=== PATIENT | female | born 1965 | race Caucasian/White ===

== ENCOUNTER 2019-10-29 16:24 | Inpatient (IN) | payer MEDICARE, OTHER ==
[~2019-10-29] VITALS: Ht 157.5 cm; Wt 72.6 kg
[2019-10-29] MEDS ORDERED: PRED1TAB PO (16:27)
[2019-10-29] MEDS ORDERED: METH2.5T PO (16:27)
--- NOTE | 2019-10-29 16:34 | NUR ---
PT BIBRA TO ER BED 01. PRESENTS W/ RLE PAIN AND DEFORMITY S/P GLF IN THE PARK. DENIES HEAD TRAUMA. ABRASION NOTED TO AFFECTED EXTREMITY. AWAITNG MD MYRICK.
--- NOTE | 2019-10-29 16:40 | NUR ---
FLACA DIAZ AT BEDSIDE FOR EVAL.
--- NOTE | 2019-10-29 16:42 | NUR ---
RADIOLOGY AT BEDSIDE FOR R TIB/FIB XRAY.
--- NOTE | 2019-10-29 17:29 | NUR ---
[facility] FOR CONSULT.
--- NOTE | 2019-10-29 17:33 | NUR ---
RADIOLOGY AT BEDSIDE FOR R ANKLE XRAY.
[2019-10-29 17:53] LABS: BASOPHILS # (AUTO) 0.1 /CMM (0.0-0.2); BASOPHILS % (AUTO) 0.6 % (0.0-2.0); EOSINOPHILS % (AUTO) 1.1 % (0.0-6.0); HEMATOCRIT 39 % (33-45); HEMOGLOBIN 12.7 g/dL (11.5-14.8); LYMPHOCYTES # (AUTO) 1.7 /CMM (0.8-4.8); LYMPHOCYTES % (AUTO) 16.9 % (20.0-44.0); MEAN CORPUSCULAR HGB CONC 32 g/dl (31.0-36.0); MEAN CORPUSCULAR VOLUME 88 fL (82-100); MONOCYTES # (AUTO) 0.6 /CMM (0.1-1.30); NEUTROPHILS # (AUTO) 7.4 /CMM (1.8-8.9); NEUTROPHILS % (AUTO) 75.4 % (43.0-81.0); PLATELET COUNT (AUTO) 223 /CMM (150-450); RED BLOOD CELL COUNT(AUTO) 4.46 MIL/uL (4.0-5.2); WHITE BLOOD COUNT (AUTO) 9.8 K/uL (4.3-11.0)
[2019-10-29 18:03] LABS: CALCIUM, SERUM 9.3 mg/dL (8.5-10.1); CREATININE 0.8 mg/dL (0.6-1.3); POTASSIUM 3.8 mmol/L (3.5-5.1)
[2019-10-29] MEDS ORDERED: IV NS 0.9% 1,000 ML IV PRN (18:20)
--- NOTE | 2019-10-29 18:20 | NUR ---
Fátima carreno in [facility] - 10/29/19 at 1821 by ZHANNA CALLED NURSING SUP FOR M/S BE.X
--- NOTE | 2019-10-29 18:21 | NUR ---
CALLED NURSING SUP FOR M/S BED.
[2019-10-29] MEDS ORDERED: MAGNESIUM HYDROXIDE 30 ML UDC PO PRN (18:30)
[2019-10-29] MEDS ORDERED: HYDROCODONE/APAP 5/325MG 1 EACH TABLET PO PRN (18:30)
[2019-10-29] MEDS ORDERED: ONDANSETRON HCL/PF 4 MG/2 ML VIAL IVP PRN (18:30)
[2019-10-29] MEDS ORDERED: Z GUARD REMEDY 2 OZ OINT TP PRN (18:30)
[2019-10-29] MEDS ORDERED: predniSONE 1 MG TABLET PO SCH (18:30)
[2019-10-29] MEDS ORDERED: MAG HYDROX/AL HYDROX/SIMETH 30 ML UDC PO PRN (18:30)
[2019-10-29] MEDS ORDERED: ZOLPIDEM TARTRATE 5 MG TABLET PO PRN (18:30)
[2019-10-29] MEDS ORDERED: MORPHINE SULFATE INJ 2 MG/ML DISP.SYRIN IV PRN (18:30)
[2019-10-29] MEDS ORDERED: METHOTREXATE SODIUM (2.5MG) 2.5 MG TABLET PO SCH (18:30)
--- NOTE | 2019-10-29 18:33 | NUR ---
NURSING SUP GAVE M/S BED 326-2.
--- NOTE | 2019-10-29 19:37 | NUR ---
REPORT RECEIVED FROM ALEXANDRA UMANA FOR EDI
--- NOTE | 2019-10-29 19:37 | NUR ---
REPORT GIVEN TO AFSHAN UMANA. PT AWAITING TRANSFER TO FLOOR.
--- NOTE | 2019-10-29 20:14 | NUR ---
PT TRANSFERRED TO ROOM IN STABLE CONDITION
[2019-10-29 20:30] VITALS: BP 145/94
--- NOTE | 2019-10-29 20:30 | NUR ---
MS HSE MANAGER NOTES RECEIVED PATIENT VIA GURNEY FROM ER, ALERT AND ORIENTED X 3. VERBALLY RESPONSIVE AND ABLE TO FOLLOW DIRECTIONS. BREATHING REGULAR AND UNLABORED ON ROOM AIR. RIGHT AC G20 IV LINE INTACT AND PATENT, FLUSHING WELL WITH NO BLEEDING OR S/S OF INFILTRATION NOTED. BODY ASSESSMENT DONE, SKIN INTACT CLEAN AND DRY WITH RIGHT LOWER LEG IMMOBILIZED COVERED WITH BANDAGE. DENIES SUICIDAL IDEATION. COMPLAINED OF RIGHT LEG PAIN BUT REFUSED STRONGER PAIN MEDICATIONS. TYLENOL 650MG GIVEN ORDERED. NON-PHARMACOLOGICAL INTERVENTIONS PROVIDED. PATIENT WISHES TO BE FULL CODE. BED LOW AND LOCKED ON SEMI FOWLERS POSITION. CALL LIGHT IN REACH. WILL CONTINUE TO MONITOR.
[2019-10-29] MEDS: ACETAMINOPHEN 325 MG TABLET PO PRN (20:46)
--- NOTE | 2019-10-29 22:30 | NUR ---
MS RN NOTES INFORMED PATIENT REGARDING PLANNED SURGERY TOMORROW AT 0630AM, REFUSED TO SIGN CONSENTS AND WISHED TO TALK WITH THE SURGEON FIRST BEFORE SIGNING ANYTHING. WILL START NPO AT MIDNIGHT.
--- NOTE | 2019-10-30 06:00 | NUR ---
MS RN NOTES PICKED-UP BY OR STAFF, TALKED TO THE PATIENT THAT THE SURGEON AND ANESTHESIOLOGIST WILL BE THERE IN THE OR TO EXPLAIN EVERYTHING TO HER AND THAT IF SHE DOESN'T WANT TO HAVE THE SURGERY THEY WILL WHEEL HER BACK TO HER ROOM. VITAL SIGNS TAKEN AND RECORDER, REMAINED ALERT AND ORIENTED X 3. CHECKLIST DONE ATTACHED TO CHART. WILL ENDORSE TO MORNING SHIFT FOR EDI.
[2019-10-30] MEDS ORDERED: ANESTHESIA TRAY IN PYXIS 1 EA TRAY MC ONE (06:15)
[2019-10-30] MEDS ORDERED: BUPIVACAINE 0.5 % PF 150 MG/30 ML VIAL ONE (06:16)
[2019-10-30] MEDS ORDERED: BACITRACIN 50000 UNITS/VIAL ONE (06:16)
[2019-10-30] MEDS ORDERED: MIDAZOLAM HCL 2 MG/2ML VIAL ONE (06:20)
[2019-10-30] MEDS ORDERED: FENTANYL PF 250MCG/5ML AMPUL ONE (06:20)
[2019-10-30] MEDS ORDERED: FENTANYL PF 100MCG/2ML AMPUL ONE (06:21)
[2019-10-30] MEDS ORDERED: ROCURONIUM BROMIDE 50 MG/5 ML ONE (06:23)
[2019-10-30] MEDS ORDERED: FAMOTIDINE/PF INJ 20 MG/2 ML VIAL IV ONE (06:23)
[2019-10-30] MEDS ORDERED: SEVOFLURANE 250 ML BOTTLE IH ONE (07:24)
[2019-10-30] MEDS: PANTOPRAZOLE 40 MG TABLET.DR PO SCH (07:30)
[2019-10-30 08:07] LABS: APPEARANCE,URINE CLEAR (CLEAR); BILIRUBIN,URINE NEGATIVE (NEGATIVE); BLOOD, URINE NEGATIVE Ery/uL (NEGATIVE); COLOR,URINE YELLOW (YELLOW); KETONES,URINE NEGATIVE (NEGATIVE); LEUKOCYTE ESTERASE ,URINE NEGATIVE (NEGATIVE); NITRITE, URINE NEGATIVE (NEGATIVE); PH,URINE 6.5 (5.0-8.0); PROTEIN,URINE NEGATIVE (NEGATIVE); UGLUCOSE NEGATIVE (NEGATIVE); UROBILINOGEN,URINE 0.2 EU/dL (0.2)
--- NOTE | 2019-10-30 10:30 | NUR ---
MS UMANA RECEIVED PATIENT FROM OR, S/P RIGHT TIBIAL ORIF, W/ DRESSING DRY AND INTACT, DENIES PAIN AT THIS TIME, WILL MONITOR PATIENT.
[2019-10-30 11:11] LABS: BASOPHILS % (AUTO) 0.3 % (0.0-2.0); EOSINOPHILS % (AUTO) 0.7 % (0.0-6.0); HEMATOCRIT 35 % (33-45); HEMOGLOBIN 11.1 g/dL (11.5-14.8); LYMPHOCYTES # (AUTO) 2.2 /CMM (0.8-4.8); LYMPHOCYTES % (AUTO) 26.1 % (20.0-44.0); MEAN CORPUSCULAR HGB CONC 32 g/dl (31.0-36.0); MEAN CORPUSCULAR VOLUME 88 fL (82-100); MONOCYTES # (AUTO) 0.7 /CMM (0.1-1.30); MONOCYTES % (AUTO) 8.7 % (2.0-12.0); NEUTROPHILS # (AUTO) 5.3 /CMM (1.8-8.9); NEUTROPHILS % (AUTO) 64.2 % (43.0-81.0); PLATELET COUNT (AUTO) 272 /CMM (150-450); RED BLOOD CELL COUNT(AUTO) 3.94 MIL/uL (4.0-5.2); WHITE BLOOD COUNT (AUTO) 8.3 K/uL (4.3-11.0)
[2019-10-30 11:48] LABS: ALBUMIN 3.1 g/dL (3.4-5.0); BILIRUBIN,TOTAL 0.4 mg/dL (0.2-1.0); CALCIUM, SERUM 8.1 mg/dL (8.5-10.1); CREATININE 0.8 mg/dL (0.6-1.3); MAGNESIUM 1.8 mg/dL (1.8-2.4); PHOSPHORUS 3.4 mg/dL (2.5-4.9); POTASSIUM 3.8 mmol/L (3.5-5.1); TOTAL PROTEIN, SERUM 6.9 g/dL (6.4-8.2)
[2019-10-30 11:51] LABS: THYROID STIMULATING HORMONE 2.441 uIU/mL (0.358-3.74)
[2019-10-30] MEDS ORDERED: HYDROCODONE/APAP 5/325MG 1 EACH TABLET PO PRN ×2 (12:00)
[2019-10-30] MEDS ORDERED: IV LR 1000 ML 1,000 ML IV PRN (12:00)
--- NOTE | 2019-10-30 14:00 | NUR ---
MS RN WAS SEEN AND EVALUATED BYPT,TOLERATED WELL.
[2019-10-30] MEDS: CEFAZOLIN 2 GM in IV D5W 100 ML IV SCH ×2 (15:08→23:06)
[2019-10-30 16:00] VITALS: BP 146/82
--- NOTE | 2019-10-30 19:03 | NUR ---
MS RN ON BED,ALL NEEDS ATTENDED.
--- NOTE | 2019-10-30 19:30 | NUR ---
MS RN NOTES RECEIVED ON BED A/O X4,BREATHING REGULAR,NOT IN ANY FORM OF DISTRESS,S/P RIGHT ORIF ON FIBULAR FRACTURE,DRESSING INTACT AND DRY,ELEVATED ON PILLOWS.PAIN TOLERABLE AT THE MOMENT.CALL LIGHT IN REACH,NEEDS ANTICIPATED.
[2019-10-30 20:00] VITALS: BP 143/65
[2019-10-30 20:33] VITALS: BP 143/65
[2019-10-30] MEDS: ACETAMINOPHEN 325 MG TABLET PO PRN (21:27)
--- NOTE | 2019-10-30 21:27 | NUR ---
MS RN NOTES C/O INCREASE TEMP 100.8,TYLENOL 650MG PO GIVEN ORDERED.
--- NOTE | 2019-10-30 21:30 | NUR ---
MS RN NOTES C/O CHRONIC ARTHRITIS PAIN,MEDICATED WITH PREDNISONE 1MG PO PER PATIENT REQUEST AND WITH ORDER.
--- NOTE | 2019-10-30 22:15 | NUR ---
MS RN NOTES NEW SALINE LOCK PLACE ON LEFT FOREARM #22,IVF RE STARTED.
--- NOTE | 2019-10-31 07:25 | NUR ---
MS RN NOTES FAIRLY RESTED AT NIGHT,PAIN TOLERABLE,VOIDING FREELY PER BEDPAN,PT FOR AMBULATION.FOR D/C TO [facility] FOR REHAB IF PATIENT AGREED,OTHERWISE D/C HOME IF MEDICALLY CLEARED.IN NO ACUTE DISTRESS.
[2019-10-31] MEDS: PANTOPRAZOLE 40 MG TABLET.DR PO SCH (07:40)
[2019-10-31] MEDS: ACETAMINOPHEN 325 MG TABLET PO PRN ×2 (07:40→16:08)
--- NOTE | 2019-10-31 07:40 | NUR ---
M/S RN NOTES PATIENT AWAKE IN BED A/O X4, NO RESPIRATORY DISTRESS, C/O MILD PAIN /10, REQUESTING FOR TYLENOL. SKIN WARM TO TOUCH, DRESSING C/D/I ON THE RT LEG, ELEVATED WITH PILLOWS. IV ACCESS SITE INTACT AND PATENT. PATIENT'S NEEDS ATTENDED, BED ON LOWEST LOCKED POSITION, CALL LIGHT WITHIN REACH. WILL CONTINUE TO MONITOR.
[2019-10-31 08:00] VITALS: BP 128/76
[2019-10-31 08:28] LABS: BASOPHILS % (AUTO) 0.3 % (0.0-2.0); EOSINOPHILS % (AUTO) 0.8 % (0.0-6.0); HEMATOCRIT 35 % (33-45); HEMOGLOBIN 11.2 g/dL (11.5-14.8); LYMPHOCYTES # (AUTO) 1.8 /CMM (0.8-4.8); LYMPHOCYTES % (AUTO) 18.4 % (20.0-44.0); MEAN CORPUSCULAR HGB CONC 32 g/dl (31.0-36.0); MEAN CORPUSCULAR VOLUME 88 fL (82-100); MONOCYTES # (AUTO) 1.1 /CMM (0.1-1.30); MONOCYTES % (AUTO) 11.8 % (2.0-12.0); NEUTROPHILS # (AUTO) 6.5 /CMM (1.8-8.9); NEUTROPHILS % (AUTO) 68.7 % (43.0-81.0); PLATELET COUNT (AUTO) 225 /CMM (150-450); RED BLOOD CELL COUNT(AUTO) 3.94 MIL/uL (4.0-5.2); WHITE BLOOD COUNT (AUTO) 9.5 K/uL (4.3-11.0)
[2019-10-31] MEDS ORDERED: ENOXAPARIN SODIUM 40 MG/0.4 ML DISP.SYRIN SQ SCH (09:00)
[2019-10-31 09:03] LABS: CALCIUM, SERUM 8.4 mg/dL (8.5-10.1); CREATININE 0.7 mg/dL (0.6-1.3); MAGNESIUM 1.8 mg/dL (1.8-2.4); PHOSPHORUS 2.6 mg/dL (2.5-4.9); POTASSIUM 3.9 mmol/L (3.5-5.1)
[2019-10-31] MEDS ORDERED: ENOX40DI SUBCUT (13:39)
[2019-10-31] MEDS ORDERED: RIVA10TA PO (13:45)
--- NOTE | 2019-10-31 18:00 | NUR ---
M/S RN NOTES PATIENT DISCHARGED IN STABLE CONDITION, NO RESPIRATORY DISTRESS, NO C/O PAIN AT THIS TIME. DISCHARGED INSTRUCTIONS GIVEN, VERBALIZED UNDERSTANDING. SKIN WARM TO TOUCH. IV REMOVED AND APPLIED PRESSURE DRESSING. BELONGINGS ACCOUNTED FOR AND SIGNED. PATIENT'S NEEDS ATTENDED. PATIENT ESCORTED TO LOBBY AND LEFT WITH FAMILY VIA PRIVATE CAR.
[2019-11-03] MEDS ORDERED: METHOTREXATE SODIUM (2.5MG) 2.5 MG TABLET PO SCH (09:00)
== END 2019-10-31 18:20 | disposition home health service (06) | DRG 493 ==
LOC: ER 16:29 → MED 19:27
PROVIDERS: ADMIT Hospitalist; ATTEND Hospitalist
PROC: 0QSG04Z Reposition Right Tibia with Internal Fixation Device, Open Approach (ICD-10-PCS; principal; 2019-10-29)
DX: S82.241A Displaced spiral fracture of shaft of right tibia, initial encounter for closed fracture (principal); E44.1 Mild protein-calorie malnutrition; M06.9 Rheumatoid arthritis, unspecified; Y93.01 Activity, walking, marching and hiking; W01.0XXA Fall on same level from slipping, tripping and stumbling without subsequent striking against object, initial encounter; Y92.830 Public park as the place of occurrence of the external cause; S82.441A Displaced spiral fracture of shaft of right fibula, initial encounter for closed fracture; Z79.52 Long term (current) use of systemic steroids
CPT/HCPCS: 36415; 71045-TC; 73590-TC; 73600-TC; 80048-TC; 80053-TC; 80061-TC; 81000-TC; 83735-TC; 84100-TC; 84443-TC; 85025-TC; 85730-TC; 87081-TC; 92611-TC; 97112-TC; 97530-TC; A4217; C1713; G0378; J0690; J1650; J2250; J2405; J2704; J2765; J3010; J3490; J7030; J7060; J7120; J7512

== ENCOUNTER 2020-02-25 16:57 | Emergency (ER) | payer MEDICARE, OTHER ==
[~2020-02-25] VITALS: Ht 157.5 cm; Wt 65.8 kg
[~2020-02-25 16:57] MED LIST: METH2.5T PO; PRED1TAB PO; RIVA10TA PO
[2020-02-25 17:08] VITALS: BP 142/93
== END 2020-02-25 18:34 | disposition home or self-care (01) ==
LOC: ER 16:57
DX: R60.0 Localized edema (principal); M06.9 Rheumatoid arthritis, unspecified; Z98.890 Other specified postprocedural states; Z79.899 Other long term (current) drug therapy
CPT/HCPCS: 93971-TC